=== PATIENT | female | born 1975 | race Caucasian/White ===

== ENCOUNTER 2020-03-03 07:22 | Emergency (ER) | payer OTHER ==
--- NOTE | 2020-03-03 08:17 | RAD ---
THREE VIEWS RIGHT HAND: COMPARISON: None. HISTORY: Right hand swelling for 2-3 days. FINDINGS: Three views of the right hand show no evidence of acute fracture or dislocation. Moderate diffuse so ft tissue swelling is seen. No osseous erosions are seen concerning for osteomyelitis. There may be a small osseous erosion along the index finger metacarpal head which could represent an erosive arth ritis. IMPRESSION: No evidence of acute osseous abnormality. POS: [facility]
--- NOTE | 2020-03-03 09:28 | ULT ---
VENOUS DOPPLER ULTRASOUND OF THE RIGHT UPPER EXTREMITY: Date: 03/03/2020 HISTORY: Right hand swelling. TECHNIQUE: Nicole scale ultrasound with color flow and spectral Doppler imaging of the deep venous system of the r ight upper extremity performed. FINDINGS: There is good flow, compression, and normal spectral waveforms in the right internal jugular, subclav juan pablo, axillary, brachial, radial, ulnar, basilic, and cephalic veins. IMPRESSION: No evidence of deep venous thrombosis in the right upper extremity. POS: [facility]
== END 2020-03-03 08:49 | disposition home or self-care (01) ==
LOC: ERS 07:22
DX: M19.041 Primary osteoarthritis, right hand (principal)